=== PATIENT | female | born 2005 | race African-American/Black ===

== ENCOUNTER 2025-09-19 12:32 | Emergency (ER) | payer MEDICAID ==
[~2025-09-19] VITALS: Ht 175.3 cm; Wt 95.0 kg
[2025-09-19 12:40] VITALS: O2SAT 98
[2025-09-19] MEDS: IBUPROFEN 600MG TABLET PO ONE (15:10)
[2025-09-19 19:57] LABS: CLARITY URINE CLOUDY (CLEAR); COLOR URINE DARK YELLOW (YELLOW); GLUCOSE URINE NEGATIVE (NEGATIVE); KETONES URINE 3+ (NEGATIVE); LEUKOCYTE ESTERASE URINE 2+ (NEGATIVE); NITRITE URINE NEGATIVE (NEGATIVE); OCCULT BLOOD URINE TRACE (NEGATIVE); PH URINE 6.0 (4.5-8.0); PROTEIN URINE 2+ (NEGATIVE); SPECIFIC GRAVITY URINE 1.032 (1.005-1.030); UROBILINOGEN URINE 1.0 E.U./dL (0.2-1.0)
[2025-09-19 20:18] LABS: BACTERIA URINE 1+; SQUAMOUS EPITHELIAL CELL URINE 1+ /lpf (RARE/1+); YEAST URINE 1+
[2025-09-19] MEDS ORDERED: FLUCONAZOLE 100MG TABLET PO ONE (20:30)
[2025-09-19] MEDS ORDERED: DOXY100T2 MT (20:36)
[2025-09-19] MEDS ORDERED: VALA100044 MT (20:36)
[2025-09-19] MEDS ORDERED: NITR100C MT (20:36)
[2025-09-19] MEDS: CEFTRIAXONE SODIUM 500MG VIAL IM ONE (20:40)
[2025-09-19] MEDS: FLUCONAZOLE 150MG TABLET PO SCH (20:52)
[2025-09-19 20:57] VITALS: BP 127/86; PULSE 98; RESP 16; TEMP 36.8; O2SAT 98
[2025-09-21 06:08] LABS: HSV TYPE 2 SPECIFIC AB IGG Non Reactive (Non Reactive)
[2025-09-21 15:12] LABS: CHLAMYDIA TRACHOMATIS NAA Negative (Negative); NEISSERIA GONORRHOEAE NAA Negative (Negative)
== END 2025-09-19 20:58 | disposition home or self-care (01) ==
LOC: ER 12:32
DX: A54.9 Gonococcal infection, unspecified (principal); A60.09 Herpesviral infection of other urogenital tract; B37.9 Candidiasis, unspecified; N39.0 Urinary tract infection, site not specified; I10 Essential (primary) hypertension; Z79.624 Long term (current) use of inhibitors of nucleotide synthesis
CPT/HCPCS: 86695; 86696; 87491; 87591; 81003; 81025; 86592; 36415; 96372; 99284; J0696; Z7610 ×3